=== PATIENT | female | born 1965 | race Caucasian/White ===

== ENCOUNTER 2018-04-12 15:34 | Outpatient (CLI) | payer BC | END 2018-04-12 15:35 | disposition home or self-care (01) | LOC: BICMAMMO 15:34 | PROVIDERS: ATTEND Family Medicine | DX: Z12.31 Encounter for screening mammogram for malignant neoplasm of breast (principal) | CPT/HCPCS: 77063; 77067 ==

== ENCOUNTER 2019-04-15 09:18 | Outpatient (CLI) | payer BC ==
--- NOTE | 2019-04-15 10:23 | MMO ---
Bilateral MAMMO Bilat Screen [facility]. CLINICAL HISTORY: Patient is 53 years old and is seen for screening. The patient has no family history of breast cancer. The patient has no personal history of cancer. The patient has a history of right Cyst Aspiration in April, - benign. VIEWS: The views performed were: bilateral craniocaudal with tomosynthesis and bilateral mediolateral oblique with tomosynthesis. FILMS COMPARED: The present examination has been compared to prior imaging studies performed at [facility] on 11/14/2014, 11/26/2015, 11/28/2016 and 04/12/2018. MAMMOGRAM FINDINGS: The breasts are heterogeneously dense, which could obscure a lesion on mammography. There are stable benign appearing calcifications seen in both breasts. There are no suspicious masses, suspicious calcifications, or new areas of architectural distortion. IMPRESSION: THERE IS NO MAMMOGRAPHIC EVIDENCE OF MALIGNANCY. A ROUTINE FOLLOW-UP MAMMOGRAM IN 1 YEAR IS RECOMMENDED. THE RESULTS OF THIS EXAM WERE SENT TO THE PATIENT. ACR BI-RADS Category 2 - Benign finding MAMMOGRAPHY NOTE: 1. A negative mammogram report should not delay a biopsy if a dominant of clinically suspicious mass is present. 2. Approximately 10% to 15% of breast cancers are not detected by mammography. 3. Adenosis and dense breasts may obscure an underlying neoplasm.
== END 2019-04-15 09:19 | disposition home or self-care (01) ==
LOC: BICMAMMO 09:18
PROVIDERS: ATTEND Family Medicine
DX: Z12.31 Encounter for screening mammogram for malignant neoplasm of breast (principal)
CPT/HCPCS: 77063; 77067

== ENCOUNTER 2020-03-30 14:00 | Outpatient (CLI) | payer OTHER | END 2020-03-30 14:01 | disposition home or self-care (01) | LOC: DTY/OP 14:00 | PROVIDERS: ATTEND Family Medicine | DX: E78.2 Mixed hyperlipidemia (principal); R73.9 Hyperglycemia, unspecified | CPT/HCPCS: 97802 ==

== ENCOUNTER 2020-04-16 07:30 | Outpatient (CLI) | payer BC ==
--- NOTE | 2020-04-16 08:16 | ULT ---
Abdominal ultrasound: 04/16/2020 COMPARISON: None HISTORY: Elevated liver function tests TECHNIQUE: Multiplanar grayscale sonographic imaging of the abdomen obtained. FINDINGS: Imaged portions of the pancreas appear grossly unremarkable. Imaged portions of the IVC and aorta appear unremarkable as well. The hepatic parenchyma is heterogeneous and echogenic, limiting assessment for focal liver lesion and intrahepatic biliary dilatation. These findings suggest hepatic steatosis. Multiple echogenic foci with shadowing within the gallbladder noted, evidence of cholelithiasis. No g allbladder wall thickening or pericholecystic fluid. The common bile duct measures approximately 6 mm. The right kidney measures 12.3 cm in craniocaudal dimension and demonstrates no stone, hydronephrosis , or mass. Spleen measures up to 12.1 cm, within normal limits. Left kidney measures 13 cm in craniocaudal dimension and demonstrates no stone, hydronephrosis, or ma ss. The cost report clerk reports a negative Hoffman's sign. IMPRESSION: Findings suggesting hepatic steatosis. Cholelithiasis. No sonographic evidence of cholecy stitis. Common bile duct is upper limits of normal in size, measuring approximately 6 mm.
--- NOTE | 2020-04-16 08:43 | MMO ---
Bilateral MAMMO Bilat Screen [facility]. CLINICAL HISTORY: Patient is 54 years old and is seen for screening. The patient has no family history of breast cancer. The patient has no personal history of cancer. The patient has a history of right Cyst Aspiration in April, - benign. VIEWS: The views performed were: bilateral craniocaudal with tomosynthesis and bilateral mediolateral oblique with tomosynthesis. FILMS COMPARED: The present examination has been compared to prior imaging studies performed at [facility] on 11/26/2015, 11/28/2016, 04/12/2018 and 04/15/2019. This study has been interpreted with the assistance of computer-aided detection. MAMMOGRAM FINDINGS: The breasts are heterogeneously dense, which could obscure a lesion on mammography. Finding 1: There are stable benign appearing calcifications seen in both breasts. Finding 2: There is a new oval mass measuring 9 millimeters with obscured margins seen in the anterior region of the right breast at 12 o'clock. IMPRESSION: FINDING 1: STABLE CALCIFICATIONS IN BOTH BREASTS ARE BENIGN. FINDING 2: NEW MASS IN THE RIGHT BREAST REQUIRES ADDITIONAL EVALUATION. ADDITIONAL PROJECTIONS (RIGHT CRANIOCAUDAL SPOT COMPRESSION; RIGHT MEDIOLATERAL OBLIQUE SPOT COMPRESSION; AND RIGHT MEDIOLATERAL) ARE RECOMMENDED. AN ULTRASOUND EXAM IS RECOMMENDED. ADDITIONAL IMAGING. THE RESULTS OF THIS EXAM WERE SENT TO THE PATIENT. ACR BI-RADS Category 0 - Incomplete: Need additional imaging evaluation. [facility] will notify the patient of the need for additional imaging services. MAMMOGRAPHY NOTE: 1. A negative mammogram report should not delay a biopsy if a dominant of clinically suspicious mass is present. 2. Approximately 10% to 15% of breast cancers are not detected by mammography. 3. Adenosis and dense breasts may obscure an underlying neoplasm. Reported by: ELIZABETH MONREAL MD Electonically Signed: [id number]
--- NOTE | 2020-04-16 15:37 | ULT ---
EXAM: RIGHT BREAST ULTRASOUND: 04/16/20 HISTORY: Patient presents for additional mammographic views of the right breast to evaluate a density at 12 o' clock. In the 12 o'clock position, 4 cm from the nipple, there is a 0.5 x 0.6 x 0.6 cm diameter slightly sep tated cyst or two immediately adjacent cysts with through transmission. No evidence for solid mass. T his corresponds to the mammographic area of concern. IMPRESSION: BIRADS 2: Benign Finding(s) Routine annual screening mammography (for women over age 40). Slightly septated cyst or two immediately adjacent cysts accounting for the mammographic area of conc chandra.
--- NOTE | 2020-04-16 15:44 | MMO ---
Right Breast MAMMO Unilat Diag [facility]. CLINICAL HISTORY: Patient is 54 years old and is seen for additional evaluation requested at current screening. The patient has no family history of breast cancer. The patient has no personal history of cancer. The patient has a history of right Cyst Aspiration in April, - benign. VIEWS: The views performed were: right craniocaudal spot compression with tomosynthesis; right mediolateral oblique spot compression with tomosynthesis; and right mediolateral with tomosynthesis. FILMS COMPARED: The present examination has been compared to prior imaging studies performed at [facility] on 04/12/2018, 04/15/2019 and 04/16/2020. This study has been interpreted with the assistance of computer-aided detection. MAMMOGRAM FINDINGS: The breast is heterogeneously dense, which could obscure a lesion on mammography. Finding 1: There are stable benign appearing calcifications seen in the right breast. Finding 2: There is a mass measuring 9 millimeters with obscured margins seen in the posterior region of the right breast at 12 o'clock. There are no suspicious masses, suspicious calcifications, or new areas of architectural distortion. IMPRESSION: FINDING 1: STABLE CALCIFICATIONS IN THE RIGHT BREAST ARE BENIGN. FINDING 2: MASS IN THE RIGHT BREAST IS BENIGN. CYST ON ULTRASOUND A ROUTINE FOLLOW-UP MAMMOGRAM IN 1 YEAR IS RECOMMENDED. THE RESULTS OF THIS EXAM WERE SENT TO THE PATIENT. ACR BI-RADS Category 2 - Benign finding MAMMOGRAPHY NOTE: 1. A negative mammogram report should not delay a biopsy if a dominant of clinically suspicious mass is present. 2. Approximately 10% to 15% of breast cancers are not detected by mammography. 3. Adenosis and dense breasts may obscure an underlying neoplasm. Reported by: ELIZABETH MONREAL MD Electonically Signed: [id number]
== END 2020-04-16 07:31 | disposition home or self-care (01) ==
LOC: BICULT 07:30
PROVIDERS: ATTEND Family Medicine
DX: Z12.31 Encounter for screening mammogram for malignant neoplasm of breast (principal); R74.8 Abnormal levels of other serum enzymes; R92.1 Mammographic calcification found on diagnostic imaging of breast; N63.10 Unspecified lump in the right breast, unspecified quadrant; N60.01 Solitary cyst of right breast; K80.20 Calculus of gallbladder without cholecystitis without obstruction
CPT/HCPCS: 77063; 77067; 93975; G0279

== ENCOUNTER 2020-04-27 07:17 | Outpatient (CLI) | payer BC, OTHER ==
[2020-04-28 12:21] LABS: SARS-CoV-2 MS2 Positive; SARS-CoV-2 N Gene Negative; SARS-CoV-2 S Gene Negative; SARS-CoV-2 orf1ab Negative
== END 2020-04-27 07:18 | disposition home or self-care (01) ==
LOC: LABBT 07:17
PROVIDERS: ATTEND Specialist
DX: Z01.818 Encounter for other preprocedural examination (principal); Z11.59 Encounter for screening for other viral diseases; K80.12 Calculus of gallbladder with acute and chronic cholecystitis without obstruction
CPT/HCPCS: 87635; 93005; 93010; U0003

== ENCOUNTER 2020-05-01 09:45 | Day surgery (SDC) | payer BC ==
[2020-04-24 09:43] VITALS: BMI 37.8
--- NOTE | 2020-05-01 06:14 | HP ---
HISTORY OF PRESENT ILLNESS: Christina York is a 54-year-old female, who has had months of epigastric right upper quadrant pain without nausea or vomiting. This occurs postprandial fatty food intake. Ultrasound revealed gallstones with 6 mm bile duct and the fatty liver. Liver function test a month ago was normal. CBC was normal. Plan and recommendation are for laparoscopic video cholecystectomy. Risks of infection, bleeding, visceral and biliary injury, open procedure discussed, questions answered. TOBACCO: None. ALCOHOL: None. MEDICATIONS: 1. Metoprolol 100 mg daily. 2. Hydrochlorothiazide 25 mg daily. 3. Metformin 500 mg daily. PAST MEDICAL HISTORY: Hypertension; diabetes, recently diagnosed; slightly elevated cholesterol; mildly elevated triglycerides; past medical history of fibrocystic disease. ALLERGIES: LODINE . PAST SURGICAL HISTORY: Noncontributory. FAMILY HISTORY: Mother, diabetes and hypertension. Brother has hypertension. 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 She is single, engaged. PHYSICAL EXAMINATION: VITAL SIGNS: Weight 227 pounds, height 65 inches, BMI 37. Blood pressure 160/94, pulse 68, temperature 97.2 degrees. HEENT: Sclerae nonicteric. SKIN: Nonjaundiced. LUNGS: Clear to auscultation. CARDIAC: Regular rate and rhythm without murmur or gallop. ABDOMEN: Soft and nontender. No masses. EXTREMITIES: Unremarkable. ASSESSMENT AND PLAN: Symptomatic cholelithiasis. Recommend laparoscopic video cholecystectomy. Risks of infection, bleeding, reoperation discussed. She consents. Job ID: [id number]
[2020-05-01] MEDS ORDERED: Ketorolac Tromethamine 30 MG/ML VIAL ONE (10:24)
[2020-05-01] MEDS ORDERED: Ondansetron PF 4 MG/2 ML Vial ONE ×3 (10:24→14:14)
[2020-05-01] MEDS ORDERED: Acetaminophen 500 MG TAB ONE (10:24)
[2020-05-01] MEDS ORDERED: Scopolamine 1.5 mg/72 hour Patch ONE (10:24)
[2020-05-01] MEDS ORDERED: hydrALAZINE 20 MG/ML VIAL ONE ×2 (10:35→13:07)
[2020-05-01] MEDS ORDERED: Midazolam HCl 2 mg/2 ml Vial ONE ×2 (10:58→11:48)
[2020-05-01] MEDS ORDERED: PROPOFOL 200 MG/20 ML VIAL ONE (11:15)
[2020-05-01] MEDS ORDERED: Lidocaine 1% PF 5 ML VIAL ONE (11:15)
[2020-05-01] MEDS ORDERED: Dexamethasone 20 MG/5 ML VIAL ONE (11:15)
[2020-05-01] MEDS ORDERED: Rocuronium Bromide 10 MG/ML (10ML VIAL) ONE (11:15)
[2020-05-01] MEDS ORDERED: Lidocaine 1% w/Epinephrine 1:100K 20 ML VIAL ONE (11:20)
[2020-05-01] MEDS ORDERED: Bupivacaine PF 0.5% 30 ML VIAL ONE (11:20)
[2020-05-01] MEDS ORDERED: Fentanyl 250 MCG/5 ML VIAL ONE (11:48)
[2020-05-01] MEDS ORDERED: SUGAMMADEX SODIUM 200 MG/2 ML VIAL ONE (12:48)
--- NOTE | 2020-05-01 13:06 | OP ---
DATE OF PROCEDURE: 05/01/2020 PREOPERATIVE DIAGNOSES: 1. Chronic cholecystitis. 2. Cholelithiasis. POSTOPERATIVE DIAGNOSES: 1. Chronic cholecystitis. 2. Cholelithiasis. PROCEDURE PERFORMED: Laparoscopic video cholecystectomy. ANESTHESIA: General, local with 0.5% Marcaine with epinephrine 30 mL. DESCRIPTION OF PROCEDURE: The patient was taken to the operating room where under general anesthesia, abdomen was prepared with ChloraPrep and draped in routine fashion. Local anesthetic infiltrated in the skin and subcutaneous tissue at each port site. Infraumbilical incision made. Pneumoperitoneum to 15 mmHg was obtained with a Veress needle, replacing with a 5 port, video laparoscope inserted. Right subxiphoid incision was made and 11 port placed. Right subcostal incision made at midclavicular entrance line and the 5 port was placed. The fundus of the gallbladder was grasped at the cephalad. Infundibulum grasped and reflected laterally. Cystic artery and duct dissected free. Critical view obtained. Cystic artery and duct doubly clipped proximally and divided. Gallbladder dissected free from liver bed, obtaining good hemostasis prior to division of final peritoneal attachments. Gallbladder and contents removed, submitted to Pathology. Good hemostasis ensured. Irrigant and pneumoperitoneum evacuated. All instruments were removed. All skin incisions were approximated with interrupted subdermal 4-0 Monocryl, and [place] glue applied. Job ID: [id number]
[2020-05-01] MEDS ORDERED: Fentanyl 100 MCG/2 ML VIAL ONE ×2 (13:13→13:33)
[2020-05-01] MEDS ORDERED: Promethazine HCl 25 MG/ML VIAL ONE (13:26)
[2020-05-01] MEDS ORDERED: PROPOFOL 20 ML ONE (13:33)
== END 2020-05-01 16:25 | disposition home or self-care (01) ==
LOC: SDC 09:45
PROVIDERS: ATTEND Specialist
PROC: 0FT44ZZ Resection of Gallbladder, Percutaneous Endoscopic Approach (ICD-10-PCS; principal; 2020-05-01)
DX: K80.12 Calculus of gallbladder with acute and chronic cholecystitis without obstruction (principal); I10 Essential (primary) hypertension; E11.9 Type 2 diabetes mellitus without complications; E78.00 Pure hypercholesterolemia, unspecified; E78.2 Mixed hyperlipidemia; Z79.84 Long term (current) use of oral hypoglycemic drugs; Z79.899 Other long term (current) drug therapy; Z88.6 Allergy status to analgesic agent; Z91.041 Radiographic dye allergy status
CPT/HCPCS: 88304; J0360; J0690; J1100; J1885; J2250; J2405; J2550; J2704; J3010; S0020

== ENCOUNTER 2022-05-23 14:54 | Outpatient (CLI) | payer BC | END 2022-05-23 14:55 | disposition home or self-care (01) | LOC: BICMAMMO 14:54 | PROVIDERS: ATTEND Family Medicine | DX: Z12.31 Encounter for screening mammogram for malignant neoplasm of breast (principal); R92.1 Mammographic calcification found on diagnostic imaging of breast | CPT/HCPCS: 77063; 77067 ==

== ENCOUNTER 2022-05-26 09:29 | Outpatient (CLI) | payer BC | END 2022-05-26 09:30 | disposition home or self-care (01) | LOC: BICMAMMO 09:29 | PROVIDERS: ATTEND Family Medicine | DX: R92.8 Other abnormal and inconclusive findings on diagnostic imaging of breast (principal) | CPT/HCPCS: G0279 ==

== ENCOUNTER 2024-04-23 15:10 | Outpatient (CLI) | payer BC | END 2024-04-23 15:11 | disposition home or self-care (01) | LOC: BICMAMMO 15:10 | PROVIDERS: ATTEND Family Medicine | DX: Z12.31 Encounter for screening mammogram for malignant neoplasm of breast (principal); Z91.89 Other specified personal risk factors, not elsewhere classified | CPT/HCPCS: 77063; 77067 ==